=== PATIENT | female | born 1985 | race Caucasian/White ===

== ENCOUNTER 2017-06-09 21:36 | Inpatient (IN) | payer OTHER ==
[2017-06-09] MEDS ORDERED: IBUPROFEN 600 MG TAB PO PRN (21:44)
[2017-06-09] MEDS ORDERED: EPSOM SALT 454 GM TP PRN (21:44)
[2017-06-09] MEDS ORDERED: LR 1,000 ML IV PRN (21:44)
[2017-06-09] MEDS ORDERED: OXYTOCIN 20 UNIT in LR 1,000 ML IV PRN (21:44)
[2017-06-09] MEDS ORDERED: TERBUTALINE SULFATE 1 MG/ML VIAL IV PRN (21:44)
[2017-06-09] MEDS ORDERED: OLIVE OIL 118 ML BTL MISC PRN (21:44)
[2017-06-09] MEDS ORDERED: OLIVE OIL 118 ML BTL ONE (21:45)
[2017-06-09] MEDS ORDERED: LIDOCAINE 1% 300 MG/30 ML SDV ONE (21:45)
[2017-06-09] MEDS ORDERED: OXYTOCIN 10 UNIT/ML VIAL ONE (21:46)
[2017-06-09] MEDS ORDERED: AMMONIA AROMATIC 1 EACH AMP IH ONE (21:46)
[2017-06-09] MEDS ORDERED: TERBUTALINE SULFATE 1 MG/ML VIAL ONE (21:46)
[2017-06-09] MEDS ORDERED: MISOPROSTOL 200 MCG TAB ONE (21:46)
--- NOTE | 2017-06-09 21:48 | PDGENHP ---
History and Physical History and Physical: HPI: Patient is a 31 yo that presents to L&D with complaints of contractions since 1900. She reports contractions increasing in intensity and frequency since 1999. She states she is having contractions every 4-7 minutes. She is rating them 6/10. She denies any LOF, VB. She reports +FM. EDC: 06/21/17 which is based on Ultrasound at 6 weeks. LMP unknown- was Her is complicated by: short interval, h/o PTD @ 36wks (PPROM) - declined iris Review of Systems: Constitutional: Denies any fever, chills, or fatigue HEENT: denies any visual changes, difficulty swallowing, hearing loss Cardiovascular: Denies any chest pain, palpitations, leg swelling Respiratory: denies any cough, wheezing, or shortness of breathe GI: Denies any nausea, vomiting, diarrhea, constipation : denies any dysuria, urgency, frequency, vaginal bleeding Musculoskeletal: denies any muscle or bone pain Skin: denies any rashes Neuro: denies any headache, seizures, lightheadedness, dizziness, or loss of consciousness Psychiatric: denies any depression, anxiety, or SI/HI thoughts HISTORY: Previous OB history: 6#11 Past medical history: noncontributory Past surgical history: IUD removal Medications: PNV Allergies (list reaction): NKDA LABS: Rh: A+ ABS: Neg Rubella: Immune HbsAg: NR HIV: NR VDRL: NR 1hr: 64 GC: Neg Chlamydia: Neg Pap: Normal GBS: positive BMI: (prepreg) 21 PHYSICAL EXAM: Constitutional: WN, A&Ox3 HEENT: normocephalic atraumatic, supple Heart: RRR, no murmur Chest: CTA-B Abdomen: Soft, nontender, gravid SVE: 5/80/-2 Extremities: trace edema, negative homans sign Neuro: grossly normal Psych: normal affect assessment: Reassuring FHTs, baseline 130 +accels, +variables, moderate variability Contractions: toco q 1-3 Assessment: 1) [id number] with IUP@ 38-2wks by 6wk US 2) active labor 3) GBS + 4) Cat 2 FHR tracing Plan: 1) Admit to L&D 2) IV fluids 3) IV abx 4) reassess PRN 5) pain management PRN/labor in tub 6) anticipate
[2017-06-09] MEDS ORDERED: AMPICILLIN SODIUM 1 GM in NS 50 ML IV SCH ×2 (22:00→22:48)
[2017-06-09] MEDS ORDERED: AMPICILLIN SODIUM 2 GM in STERILE WATER INJ 25 ML IV ONE (22:00)
[2017-06-09 22:36] LABS: PLATELET COUNT 272 10^3/uL (150-400)
--- NOTE | 2017-06-09 23:49 | PREANESOB ---
Obstetric Pre-Anesthesia Info - General Info Proposed Procedure: JASWINDER : 2 Para: 1 TESS: 06/21/17 Gestational Age: 38 week(s) and 2 day(s) - Info Status: Full Term FHR Pattern: Reassuring - Labor Status Indications for Labor Analgesia: Pain Control Labor Epidural: Proposed (RBA discussed) Anesthesia Allergies/Adverse Reactions: Allergy/AdvReac Type Severity Reaction Status Date / Time No Known Allergies Allergy Unverified 11/09/15 05:05 Home Medications: Medication Instructions Recorded Docusate Sodium [Colace 100 MG (*)] 100 mg PO BID PRN #0 cap 11/11/15 Ibuprofen [Motrin (*)] 600 mg PO Q6 PRN #0 tab 11/11/15 Visit Medications: Generic Name Dose Route Start Last Admin Trade Name Freq PRN Reason Stop Dose Admin Lactated Ringer's 1,000 mls @ 0 mls/hr 06/09/17 21:44 06/09/17 23:47 Lr IV 06/10/17 21:43 1,000 mls PRN PRN Administration SEE PROTOCOL CONDITIONS Protocol Per Protocol Oxytocin 20 unit/ Lactated 1,002 mls @ 150 mls/hr 06/09/17 21:44 Ringer's IV PRN PRN Post- bleeding Ampicillin Sodium 1 gm/ 15 mls @ 60 mls/hr 06/10/17 02:30 Sterile Water IV 07/10/17 02:29 Q4H [id number] Ibuprofen 600 mg 06/09/17 21:44 Motrin PO 12/06/17 21:43 Q6HRS PRN post , inflammation Magnesium Sulfate 454 gm 06/09/17 21:44 Epsom Salt TP 12/06/17 21:43 Q1H PRN perineal discomfort [place] Oil 118 ml 06/09/17 21:44 Sweet Oil MISC 12/06/17 21:43 ONCE PRN perineal massage Terbutaline Sulfate 0.25 mg 06/09/17 21:44 Brethine IV 12/06/17 21:43 ONCE PRN Tachysystole Discontinued Medications Generic Name Dose Route Start Last Admin Trade Name Freq PRN Reason Stop Dose Admin Ammonia (Aromatic Spirit) Confirm 06/09/17 21:46 Ammonia Aromatic Administered 06/09/17 21:47 Dose 1 each IH .STK-MED ONE Ampicillin Sodium 2 gm/ 25 mls @ 100 mls/hr 06/09/17 22:00 06/09/17 22:26 Sterile Water IV 06/09/17 22:14 25 mls ONCE ONE Administration Lidocaine HCl Confirm 06/09/17 21:45 Lidocaine Hcl 1% Administered 06/09/17 21:46 Dose 300 mg .ROUTE .STK-MED ONE Misoprostol Confirm 06/09/17 21:46 Cytotec Administered 06/09/17 21:47 Dose 1,000 mcg .ROUTE .STK-MED ONE [place] Oil Confirm 06/09/17 21:45 Sweet Oil Administered 06/09/17 21:46 Dose 118 ml .ROUTE .STK-MED ONE Oxytocin Confirm 06/09/17 21:46 Pitocin Administered 06/09/17 21:47 Dose 30 unit .ROUTE .STK-MED ONE Terbutaline Sulfate Confirm 06/09/17 21:46 Brethine Administered 06/09/17 21:47 Dose 1 mg .ROUTE .STK-MED ONE - Vital Signs Height/Weight (Nursing): Height 172.72 cm Weight 79.379 kg Labs: 06/09/17 22:20 Patient ABO/Rh A POSITIVE 06/09/17 22:20
[2017-06-09] MEDS ORDERED: fentaNYL 2MCG/ML/BUP 0.1% RTU 100 ML BAG EP ONE (23:50)
[2017-06-09] MEDS ORDERED: PHENYLEPHRINE HCL 100 MCG/ML SYR ONE (23:50)
[2017-06-10] MEDS ORDERED: METHYLERGONOVINE MAL 0.2 MG/ML INJ ONE (00:14)
[2017-06-10] MEDS ORDERED: METHYLERGONOVINE MAL 0.2 MG/ML INJ IM ONE (00:16)
[2017-06-10] MEDS ORDERED: DIPHENOXYLATE/ATROPINE LOMOTIL 1 TAB PO ONE (00:30)
[2017-06-10] MEDS ORDERED: HEMABATE 250 MCG/1 ML AMP IM ONE (00:30)
[2017-06-10] MEDS ORDERED: DOCUSATE SODIUM 100 MG CAP PO PRN (01:30)
[2017-06-10] MEDS ORDERED: ACETAMINOPHEN 325 MG TAB PO PRN (01:30)
[2017-06-10] MEDS ORDERED: HYDROCORTISONE 0.5% CREAM TP PRN (01:30)
[2017-06-10] MEDS ORDERED: HYDROCODONE/APAP 5/325 TAB PO PRN (01:30)
[2017-06-10] MEDS ORDERED: SIMETHICONE 80 MG TAB CHEW PO PRN (01:30)
[2017-06-10] MEDS ORDERED: OXYTOCIN 10 UNIT/ML VIAL ONE ×2 (01:33→02:03)
--- NOTE | 2017-06-10 01:34 | OBDEL ---
Info Type: Vaginal Presentation at Delivery: Vertex L&D Analgesia/Anesthesia Type: None, Local GBS+: Yes Antibiotic Used for + GBS: Ampicillin Intrapartum Medications: Generic Name Dose Route Start Last Admin Trade Name Freq PRN Reason Stop Dose Admin Lactated Ringer's 1,000 mls @ 0 mls/hr 06/09/17 21:44 06/09/17 23:47 Lr IV 06/10/17 21:43 1,000 mls PRN PRN Administration SEE PROTOCOL CONDITIONS Protocol Per Protocol Discontinued Medications Generic Name Dose Route Start Last Admin Trade Name Freq PRN Reason Stop Dose Admin Ampicillin Sodium 2 gm/ 25 mls @ 100 mls/hr 06/09/17 22:00 06/09/17 22:26 Sterile Water IV 06/09/17 22:14 25 mls ONCE ONE Administration Indications for Delivery: Spontaneous Labor, SROM Vaginal Delivery - Delivery Provider Delivery Physician/CNM: Juany oD - Labor and Delivery Onset of Contractions Date: 06/09/17 Onset of Contractions Time: 19:00 Onset of Contractions Type: Spontaneous Rupture of Membranes Date: 06/09/17 Rupture of Membranes Time: 23:35 Rupture of Membranes Type: Spontaneous Amniotic Fluid Color: Clear Dilation Complete Date: 06/09/17 Dilation Complete Time: 23:52 Placenta Delivery Date: 06/10/17 Placenta Delivery Time: 00:08 Total Hours of Labor: 5 Laceration: 1st Degree Repair: 3-0, Vicryl Vaginal Sponge Count Correct: Yes Vaginal Needle Count Correct: Yes Vaginal Sweep Performed: Yes EBL: 800 Delivery Events: Post Hemorrhage Delivery Comment: delivered unmedicated; PPH 800mL, used cytotec 1000mcg, methergine 0.2mg, and 20mU of pitocin. will use methergine 0.2mg POq6 hrs x 24 hrs Data TESS: 06/21/17 Gestational Age: 38 week(s) and 3 day(s) Flores Delivery Date: 06/09/17 Delivery Time: 23:58 Sex of Infant: Female Score (1 Min): 8 Score (5 Min): 9 ICD10 Worksheet Patient Problems: Problems Problem Status Onset First degree perineal laceration during delivery Acute Normal labor Acute hemorrhage Acute (spontaneous vaginal delivery) Acute - ICD10 Problem Qualifiers (1) Normal labor (2) (spontaneous vaginal delivery) (3) First degree perineal laceration during delivery (4) hemorrhage
[2017-06-10] MEDS ORDERED: AMPICILLIN SODIUM 1 GM in STERILE WATER INJ 15 ML IV SCH (02:30)
[2017-06-10] MEDS: METHYLERGONOVINE MAL 0.2 MG TAB PO SCH ×5 (06:02→23:54)
--- NOTE | 2017-06-11 08:30 | OBPP ---
Progress Note Assessment/Plan: Assessment: Post day 1 Stable afebrile Plan: Continue routine post care Discharge home tomorrow 06/11/17 08:27 Subjective/ Course: 06/11/17 08:30 Ambulating tolerating diet +Flatus. min lochia Objective: 06/10/17 06:25 Patient ABO/Rh A POSITIVE 06/09/17 22:20 Temp Pulse Resp BP Pulse Ox 37.0 C 93 16 122/87 H 95 06/10/17 20:05 06/10/17 20:05 06/10/17 20:05 06/10/17 20:05 06/10/17 20:05 Uterine Position/Fundal Height: Umbilicus -2 Uterine Tone: Firm Physical Exam - Physical Exam Neck: non-tender, full range of motion Respiratory: chest non-tender Cardiac/Chest: normal peripheral pulses Abdomen: normal bowel sounds, non-tender, other Skin: normal color, warm/dry, cyanosis Neuro/Psych: no motor/sensory deficits, alert, normal mood/affect, oriented x 3
--- NOTE | 2017-06-12 08:23 | OBPP ---
Progress Note Assessment/Plan: Assessment: Post day 2 Stable afebrile Ready to discharge home Plan: Continue routine post care Discharge home tomorrow 06/11/17 08:27 06/12/17 08:22 Discharge home Follow up 4 and 6 weeks Subjective/ Course: 06/11/17 08:30 Ambulating tolerating diet +Flatus. min lochia Objective: 06/10/17 06:25 Patient ABO/Rh A POSITIVE 06/09/17 22:20 Temp Pulse Resp BP Pulse Ox 36.5 C 98 20 111/69 96 06/11/17 20:00 06/11/17 20:00 06/11/17 20:00 06/11/17 20:00 06/11/17 20:00 Uterine Position/Fundal Height: Umbilicus -2 Uterine Tone: Firm Physical Exam - Physical Exam Respiratory: chest non-tender, lungs clear, normal breath sounds Cardiac/Chest: normal peripheral pulses, regular rate, rhythm Abdomen: normal bowel sounds, non-tender Extremities: normal range of motion, non-tender Neuro/Psych: no motor/sensory deficits, alert, normal mood/affect, oriented x 3
--- NOTE | 2017-06-12 08:32 | OBGCSDC ---
General Delivery Information - General Info : 2 Para: 2 Abortions: 0 Type: Vaginal L&D Analgesia/Anesthesia Type: None, Local Admission Date: 06/09/17 Labs: Patient ABO/Rh A POSITIVE 06/09/17 22:20 Hct 36.9 % (38.0-47.0) L 06/10/17 06:25 - Hospital Course : 06/11/17 08:30 Ambulating tolerating diet +Flatus. min lochia Vaginal - Delivery Provider Delivery Physician/CNM: Juany Do - Diagnosis Labor: Spontaneous Rupture of Membranes Type: Spontaneous Amniotic Fluid Color: Clear Laceration: 1st Degree Repair: 3-0, Vicryl Delivery Events: Post Hemorrhage - Delivery EBL: [address] Data TESS: 06/21/17 Gestational Age: 38 week(s) and 5 day(s) Flores Delivery Date: 06/09/17 Delivery Time: 23:58 Sex of : Female Score (1 Min): 8 Score (5 Min): 9 Discharge Information - Discharge Information Prescriptions: Ibuprofen [Motrin (*)] 600 mg PO Q6HRS PRN #30 tab PRN Reason: post , inflammation Condition: Good Instruction/Follow Up: Four Weeks (wellness check at 4 weeeks and 6 weeks post check)
[2017-06-12 09:16] VITALS: BP 110/71; PULSE 91; RESP 17; TEMP 98; O2SAT 95
== END 2017-06-12 10:40 | disposition home or self-care (01) | DRG 774 ==
LOC: FLD 21:36 → FOB 06-10 02:18
PROVIDERS: ADMIT Advanced Practice Midwife; ATTEND Advanced Practice Midwife
PROC: 10E0XZZ Delivery of Products of Conception, External Approach (ICD-10-PCS; principal; 2017-06-09)
PROC: 0HQ9XZZ Repair Perineum Skin, External Approach (ICD-10-PCS; principal; 2017-06-09)
DX: O70.0 First degree perineal laceration during delivery (principal); O99.824 Streptococcus B carrier state complicating childbirth; O72.1 Other immediate postpartum hemorrhage; Z3A.38 38 weeks gestation of pregnancy; Z37.0 Single live birth
CPT/HCPCS: J0290; J2210; J2370; J3105